=== PATIENT | male | born 1985 | race African-American/Black ===

== ENCOUNTER 2018-10-30 17:50 | Emergency (ER) | payer SELFPAY ==
[2018-10-30] MEDS ORDERED: Ketorolac 60 MG/2 ML SDV IM ONE (18:01)
--- NOTE | 2018-10-30 18:08 | EDM.PDOC ---
ED HPI GENERAL MEDICAL PROBLEM - General Chief Complaint: Back Pain or Injury Stated Complaint: HURT BACK Time Seen by Provider: 10/30/18 17:52 Source of Information: Reports: Patient History Limitations: Reports: No Limitations - History of Present Illness INITIAL COMMENTS - FREE TEXT/NARRATIVE: HISTORY AND PHYSICAL: History of present illness: Patient is a 33-year-old male who presents to the emergency room with complaints of low lumbar/right lower back pain after a fall. Patient reports he was running to grab something in his apartment when he slipped falling with his feet out in front of them. He states he fell in a twisting-like position onto his right side. He did not hit his head or have any loss of consciousness. Denies any urinary or fecal incontinence. Denies any numbness or tingling to his distal extremities. He states that he has had muscular strain/pain like this previously. Review of systems: As per history of present illness and below otherwise all systems reviewed and negative. Past medical history: As per history of present illness and as reviewed below otherwise noncontributory. Surgical history: As per history of present illness and as reviewed below otherwise noncontributory. Social history: See social history for further information Family history: As per history of present illness and as reviewed below otherwise noncontributory. Physical exam: General: Well-developed and well-nourished 33-year-old male. Alert and oriented. Nontoxic appearing and in no acute distress. HEENT: Atraumatic, normocephalic, pupils equal and reactive bilaterally, negative for conjunctival pallor or scleral icterus, mucous membranes moist, TMs normal bilaterally, throat clear, neck supple, nontender, trachea midline. No drooling or trismus noted. No meningeal signs. No hot potato voice noted. Lungs: Clear to auscultation, breath sounds equal bilaterally, chest nontender. Heart: S1S2, regular rate and rhythm without overt murmur Abdomen: Soft, nondistended, nontender. Negative for masses or hepatosplenomegaly. Negative for costovertebral tenderness. Pelvis: Stable nontender. Genitourinary: Deferred. Rectal: Deferred. Skin: Intact, warm, dry. No lesions or rashes noted. C-spine/Back: No pinpoint vertebral tenderness with palpation. No crepitus, step -offs or obvious deformities. Patient is ambulatory into the emergency room without difficulty or deficits. He is able to walk on his heels and toes without difficulty. Denies any numbness, tingling or saddle paresthesia. Denies any urinary or fecal incontinence. Extremities: Atraumatic, moves all extremities per self without difficulty or deficits, negative for cords or calf pain. Neurovascular unremarkable. Neuro: Awake, alert, oriented. Cranial nerves II through XII unremarkable. Cerebellum unremarkable. Motor and sensory unremarkable throughout. Exam nonfocal. Notes: Patient does have a ride to home. We'll give Norflex and Toradol IM. Agreeable for lumbar spine x-ray. Patient did find relief with IM injections. X-ray shows no acute findings. We' ll prescribe Flexeril and diclofenac for home use. Medication education reviewed. Supportive care measures were reviewed and discussed. Voices understanding and is agreeable to plan of care. Denies any further questions or concerns at this time. Diagnostics: Lumbar X-ray Therapeutics: Norflex IM, Toradol IM Prescription: Flexeril (#21) Diclofenac (#30) Impression: Lumbar back pain Plan: 1. The medication he received as an injection today does cause drowsiness so do not drive for the remaining day 2. When resting please lay on a flat firm surface. Limit your immobility to prevent muscle stiffness, get up to ambulate/move around/gentle stretching multiple times throughout the day. May alternate heat and ice to the painful area and 3. Tylenol as needed for back pain. Otherwise take the prescribed Flexeril and diclofenac as directed. Diclofenac is an anti-inflammatory so do not take any additional NSAIDs with this medication, such as ibuprofen or Aleve. Flexeril as a muscle relaxant, this medication may cause drowsiness a do not take it will driving her needing to be functioning outside of the house. 4. Please follow-up with your primary care provider as we discussed. 5. Return to the ED as needed and as discussed. Definitive disposition and diagnosis as appropriate pending reevaluation and review of above. Lower Back Pain Score (Numeric/FACES): 7 - Related Data Allergies Allergy/AdvReac Type Severity Reaction Status Date / Time No Known Allergies Allergy Verified 10/30/18 18:00 Home Meds: Home Meds Cyclobenzaprine [Flexeril] 10 mg PO TID PRN #21 tab 10/30/18 [Rx] Diclofenac Sodium [Voltaren] 75 mg PO BIDMEALS PRN #30 tab.cr 10/30/18 [Rx] ED ROS GENERAL - Review of Systems Review Of Systems: ROS reveals no pertinent complaints other than HPI. ED EXAM,LOWER BACK PAIN/INJURY - Physical Exam Exam: See Below (See dictation) Course - Vital Signs Last Recorded V/S: Last Vital Signs Temp 97.9 F 10/30/18 18:01 Pulse 88 10/30/18 18:01 Resp 18 10/30/18 18:01 BP 143/84 H 10/30/18 18:01 Pulse Ox 98 10/30/18 18:01 - Orders/Labs/Meds Orders: Active Orders 24 hr Category Date Time Status Lumbar Spine 2 or 3V [CR] Stat Exams 10/30/18 18:01 Taken Meds: Medications Discontinued Medications Generic Name Dose Route Start Last Admin Trade Name Freq PRN Reason Stop Dose Admin Ketorolac Tromethamine 60 mg 10/30/18 18:01 10/30/18 18:09 Toradol IM 10/30/18 18:02 60 mg ONETIME ONE Administration Orphenadrine Citrate 60 mg 10/30/18 18:01 10/30/18 18:10 Norflex IM 10/30/18 18:02 60 mg NOW STA Administration Departure - Departure Time of Disposition: 18:08 Disposition: Home, Self-Care 01 Clinical Impression: Lumbar back pain - Discharge Information Prescriptions: Cyclobenzaprine [Flexeril] 10 mg PO TID PRN #21 tab PRN Reason: Muscle Spasm Diclofenac Sodium [Voltaren] 75 mg PO BIDMEALS PRN #30 tab.cr PRN Reason: Pain Instructions: Acute Back Pain, Adult Referrals: PCP,None [Primary Care Provider] - Forms: ED Department Discharge Additional Instructions: The following information is given to patients seen in the emergency department who are being discharged to home. This information is to outline your options for follow-up care. We provide all patients seen in our emergency department with a follow-up referral. The need for follow-up, as well as the timing and circumstances, are variable depending upon the specifics of your emergency department visit. If you don't have a primary care physician on staff, we will provide you with a referral. We always advise you to contact your personal physician following an emergency department visit to inform them of the circumstance of the visit and for follow-up with them and/or the need for any referrals to a consulting specialist. The emergency department will also refer you to a specialist when appropriate. This referral assures that you have the opportunity for follow-up care with a specialist. All of these measure are taken in an effort to provide you with optimal care, which includes your follow-up. Under all circumstances we always encourage you to contact your private physician who remains a resource for coordinating your care. When calling for follow-up care, please make the office aware that this follow-up is from your recent emergency room visit. If for any reason you are refused follow-up, please contact the [facility] Emergency Department at and asked to speak to the emergency department charge nurse. [facility] [address] [place] [id number] [place] [address] 1. The medication he received as an injection today does cause drowsiness so do not drive for the remaining day 2. When resting please lay on a flat firm surface. Limit your immobility to prevent muscle stiffness, get up to ambulate/move around/gentle stretching multiple times throughout the day. May alternate heat and ice to the painful area and 3. Tylenol as needed for back pain. Otherwise take the prescribed Flexeril and diclofenac as directed. Diclofenac is an anti-inflammatory so do not take any additional NSAIDs with this medication, such as ibuprofen or Aleve. Flexeril as a muscle relaxant, this medication may cause drowsiness a do not take it will driving her needing to be functioning outside of the house. 4. Please follow-up with your primary care provider as we discussed. 5. Return to the ED as needed and as discussed. - My Orders Last 24 Hours: My Active Orders 10/30/18 18:01 Lumbar Spine 2 or 3V [CR] Stat - Assessment/Plan Last 24 Hours: My Active Orders 10/30/18 18:01 Lumbar Spine 2 or 3V [CR] Stat
--- NOTE | 2018-10-30 18:34 | CR ---
INDICATION: Fall. COMPARISON: None. FINDINGS/IMPRESSION: No acute fracture identified in the lumbar spine. No subluxation. Mild lumbar dextroscoliosis. Mild degenerative disc disease at L4-5. Unremarkable soft tissues. Dictated by Geoff De MD @ 10/30/2018 6:31:49 PM Dictated by: Geoff De MD @ 10/30/2018 18:32:02 (Electronically Signed)
== END 2018-10-30 18:44 | disposition home or self-care (01) ==
LOC: MW.ED 17:50
DX: M54.5 Low back pain (principal)
CPT/HCPCS: 72100; 96372; 99283; J1885; J2360

== ENCOUNTER 2018-12-08 06:58 | Emergency (ER) | payer SELFPAY ==
[2018-12-08] MEDS ORDERED: Ketorolac 60 MG/2 ML SDV IM ONE (07:26)
[2018-12-08 08:18] LABS: CHLORIDE,CL 104 mmol/L (98-107); SODIUM,NA 138 mmol/L (136-148)
--- NOTE | 2018-12-08 08:29 | EDM.PDOC ---
<Elizabeth Villatoro - Last Filed: 12/08/18 08:34> ED HPI GENERAL MEDICAL PROBLEM - General Chief Complaint: General Stated Complaint: PAIN- LEFT SIDE OF BACK Time Seen by Provider: 12/08/18 09:16 - History of Present Illness INITIAL COMMENTS - FREE TEXT/NARRATIVE: This is Dr. Villatoro dictating addendum note as I am the supervising physician on this case. I agree with history and physical as above and the patient says his pain is localized to the left side just underneath his posterior rib cage. He has no shortness of breath no anterior chest wall pain and no anterior abdominal pain. He had no urinary disturbances no nausea vomiting. Labs and CT scan upon performed to rule out any occult trauma due to the location of this injury. We will treat him with nonnarcotics and symptomatically pending those results. On my personal examination of the patient there is no posterior rib tenderness crepitus defects or deformities no soft tissue swelling in the region of his discomfort and there is reproducible pain with palpation of the soft tissue to the left of the midline spine in the lower flank area. There is no midline tenderness step-offs defects or deformity of the thoracic or lumbar spine. - Related Data Allergies Allergy/AdvReac Type Severity Reaction Status Date / Time No Known Allergies Allergy Verified 12/08/18 07:10 Home Meds: Home Meds . [No Known Home Meds] 12/08/18 [History] Course - Vital Signs Last Recorded V/S: Last Vital Signs Temp 36.1 C 12/08/18 07:08 Pulse 79 12/08/18 07:08 Resp 18 12/08/18 07:08 BP 137/69 12/08/18 07:08 Pulse Ox 98 12/08/18 07:08 - Orders/Labs/Meds Labs: Laboratory Tests 12/08/18 12/08/18 Range/Units 07:41 07:41 WBC 4.94 (4.0-11.0) K/uL RBC 5.08 (4.50-5.90) M/uL Hgb 15.4 (13.0-17.0) g/dL Hct 46.2 (38.0-50.0) % MCV 90.9 (80.0-98.0) fL MCH 30.3 (27.0-32.0) pg MCHC 33.3 (31.0-37.0) g/dL RDW Std Deviation 47.0 (28.0-62.0) fl RDW Coeff of Yanelis 14 (11.0-15.0) % Plt Count 232 (150-400) K/uL MPV 9.40 (7.40-12.00) fL Neut % (Auto) 52.5 (48.0-80.0) % Lymph % (Auto) 35.4 (16.0-40.0) % [place] % (Auto) 9.5 (0.0-15.0) % Eos % (Auto) 2.4 (0.0-7.0) % Baso % (Auto) 0.2 (0.0-1.5) % Neut # (Auto) 2.6 (1.4-5.7) K/uL Lymph # (Auto) 1.8 (0.6-2.4) K/uL [place] # (Auto) 0.5 (0.0-0.8) K/uL Eos # (Auto) 0.1 (0.0-0.7) K/uL Baso # (Auto) 0.0 (0.0-0.1) K/uL Nucleated RBC % 0.0 /100WBC Nucleated RBCs # 0 K/uL Sodium 138 (136-148) mmol/L Potassium 3.7 (3.5-5.1) mmol/L Chloride 104 (98-107) mmol/L Carbon Dioxide 26.2 (21.0-32.0) mmol/L BUN 18 (7.0-18.0) mg/dL Creatinine 1.1 (0.8-1.3) mg/dL Est Cr Clr Drug Dosing 103.86 mL/min Estimated GFR (MDRD) > 60.0 ml/min Glucose 85 (74-106) mg/dL Calcium 8.6 (8.5-10.1) mg/dL Total Bilirubin 0.5 (0.2-1.0) mg/dL AST 26 (15-37) IU/L ALT 42 (14-63) IU/L Alkaline Phosphatase 47 (46-116) U/L Total Protein 7.0 (6.4-8.2) g/dL Albumin 3.9 (3.4-5.0) g/dL Globulin 3.1 (2.6-4.0) g/dL Albumin/Globulin Ratio 1.3 (0.9-1.6) Lipase 50 L (73-393) U/L Meds: Medications Discontinued Medications Generic Name Dose Route Start Last Admin Trade Name Anne PRN Reason Stop Dose Admin Iopamidol 100 ml 12/08/18 08:51 12/08/18 08:52 Isovue Multipack-370 (76%) IVPUSH 12/08/18 08:52 100 ml ONETIME ONE Administration Ketorolac Tromethamine 60 mg 12/08/18 07:26 12/08/18 07:52 Toradol IM 12/08/18 07:27 60 mg ONETIME ONE Administration Departure - Departure Disposition: Home, Self-Care 01 Clinical Impression: Left rib fracture Qualifiers: Encounter type: initial encounter Rib fracture type: single rib Fracture type: closed Qualified Code(s): S22.32XA - Fracture of one rib, left side, initial encounter for closed fracture - Discharge Information Referrals: PCP,None [Primary Care Provider] - Forms: ED Department Discharge Additional Instructions: Follow-up with Dr. Lynne in 1-2 weeks at [facility]. <Obed Mendoza - Last Filed: 12/08/18 09:16> ED HPI GENERAL MEDICAL PROBLEM - History of Present Illness INITIAL COMMENTS - FREE TEXT/NARRATIVE: 33 y/o male presenting with left flank pain. States that he was wrestling with his friend yesterday and he got hit on his left flank. Rates pain 8/10 with pressure. Has been using ibuprofen and tylenol with minimal improvement. Denies any hematuria, blood in stool. No chest pain, abdominal pain. No previous fractures. Endorses some pleuritic pain. left ribs Pain Score (Numeric/FACES): 9 Past Medical History - Past Health History Medical/Surgical History: Denies Medical/Surgical History HEENT History: Reports: None Cardiovascular History: Reports: None Respiratory History: Reports: Other (See Below) Other Respiratory History: punctured lung with chest tube placement Gastrointestinal History: Reports: None Genitourinary History: Reports: None Musculoskeletal History: Reports: None Neurological History: Reports: None Psychiatric History: Reports: None Endocrine/Metabolic History: Reports: None Hematologic History: Reports: None Immunologic History: Reports: None Oncologic (Cancer) History: Reports: None Dermatologic History: Reports: None - Infectious Disease History Infectious Disease History: Reports: None - Past Surgical History Head Surgeries/Procedures: Reports: None HEENT Surgical History: Reports: None Cardiovascular Surgical History: Reports: None Respiratory Surgical History: Reports: None GI Surgical History: Reports: None Male Surgical History: Reports: None Endocrine Surgical History: Reports: None Neurological Surgical History: Reports: None Musculoskeletal Surgical History: Reports: None Oncologic Surgical History: Reports: None Dermatological Surgical History: Reports: None Social & Family History - Family History Family Medical History: Noncontributory - Tobacco Use Smoking Status *Q: Never Smoker Second Hand Smoke Exposure: No - Caffeine Use Caffeine Use: Reports: None - Recreational Drug Use Recreational Drug Use: Yes Recreational Drug Type: Reports: Marijuana/Hashish Recreational Drug Use Frequency: Rarely ED ROS GENERAL - Review of Systems Review Of Systems: ROS reveals no pertinent complaints other than HPI. ED EXAM, GENERAL - Physical Exam Exam: See Below Head: Atraumatic, Normocephalic Respiratory/Chest: No Respiratory Distress, Lungs Clear, Normal Breath Sounds Cardiovascular: Regular Rate, Rhythm, No Edema GI/Abdominal: Normal Bowel Sounds, Soft, Non-Tender, No Organomegaly, No Distention Back Exam: CVA Tenderness (L), Other (tenderness left side below ribs. No wound , swelling.) Extremities: Normal Inspection, No Pedal Edema Skin Exam: Warm, Dry Course - Vital Signs Text/Narrative:: CT abdomen showed left rib fracture. Departure - Departure Time of Disposition: 09:15 - Discharge Information *PRESCRIPTION DRUG MONITORING PROGRAM REVIEWED*: Not Applicable *COPY OF PRESCRIPTION DRUG MONITORING REPORT IN PATIENT MICHELLE: Not Applicable
[2018-12-08] MEDS ORDERED: Iopamidol 755 MG/ML 500 ML Multipack Bottle IVPUSH ONE (08:51)
--- NOTE | 2018-12-08 09:07 | CT ---
EXAMINATION: CT abdomen with contrast HISTORY: Left flank plain COMPARISON: None TECHNIQUE: Axial CT imaging obtained through the abdomen following the administration of 100 mL of Isovue-370 vascular fossa. Coronal and sagittal reconstructions obtained. FINDINGS: The lung bases are clear, no pleural effusion. The liver, spleen, adrenal glands, and pancreas appear normal. The gallbladder is normal. No bulky retroperitoneal lymphadenopathy or abdominal ascites. The kidneys enhance and function symmetrically without evidence of obstructive uropathy. The visualized large and small bowel are normal in caliber. No interspace posterior 11th rib fracture. IMPRESSION: 1. Nondisplaced left and posterior fracture. 2. Otherwise no acute findings noted within the abdomen.
== END 2018-12-08 09:55 | disposition home or self-care (01) ==
LOC: MW.ED 06:58
DX: S22.32XA Fracture of one rib, left side, initial encounter for closed fracture (principal); W50.0XXA Accidental hit or strike by another person, initial encounter; Y93.72 Activity, wrestling
CPT/HCPCS: 36415; 74160; 80053; 83690; 85025; 96372; 99284; J1885; Q9967

== ENCOUNTER 2019-01-23 11:53 | Emergency (ER) | payer SELFPAY ==
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
--- NOTE | 2019-01-23 12:17 | CT ---
INDICATION: Stroke code. Left arm numbness. TECHNIQUE: CT of the head without contrast. Coronal and sagittal reformats are included. COMPARISON: None. FINDINGS: No acute intracranial hemorrhage. No mass effect or midline shift. Normal cerebral volume. No hydrocephalus or extra-axial collections. White matter within normal limits for age. No acute osseous findings. Scattered ethmoid air cell mucosal thickening. Bilateral maxillary sinus mucous retention cysts. Normal soft tissues. IMPRESSION: 1. No acute intracranial abnormalities, including no CT evidence of acute infarction. No acute intracranial hemorrhage. Please note that all CT scans at this facility use dose modulation, iterative reconstruction, and/or weight-based dosing when appropriate to reduce radiation dose to as low as reasonably achievable. Dictated by Wing Jama MD @ Jan 23 2019 12:11PM Signed by Dr. Wing Jama @ Jan 23 2019 12:15PM
--- NOTE | 2019-01-23 12:19 | CT ---
INDICATION: Left-sided arm numbness. TECHNIQUE: CT of the cervical spine without contrast. Coronal and sagittal reformats are included. COMPARISON: No comparisons. FINDINGS: No acute fracture or traumatic malalignment of the cervical spine. Normal cervical lordotic curvature. Dextroconvex curve likely positional. No lytic or blastic process within the imaged osseous structures. Cervical disc heights are maintained. No osseous neural foraminal encroachment. No spinal canal stenosis within limits of CT examination. Imaged intracranial structures, cervical and paraspinous soft tissues are normal in appearance. The visualized pulmonary apices are clear. IMPRESSION: 1. No acute fracture or traumatic malalignment of the cervical spine. No significant osseous neural foraminal encroachment. No spinal canal stenosis within limits of CT examination Please note that all CT scans at this facility use dose modulation, iterative reconstruction, and/or weight-based dosing when appropriate to reduce radiation dose to as low as reasonably achievable. Dictated by Wing Jama MD @ Jan 23 2019 12:15PM Signed by Dr. Wing Jama @ Jan 23 2019 12:19PM
[2019-01-23 12:26] LABS: CHLORIDE,CL 105 mmol/L (98-107); SODIUM,NA 142 mmol/L (136-148)
--- NOTE | 2019-01-23 12:38 | CR ---
HISTORY: Arm numbness. TECHNIQUE: One view chest. COMPARISON: No prior. FINDINGS: Cardiac size and pulmonary vasculature within normal limits. There is no lung infiltrate or pulmonary edema. No pneumothorax or pleural effusion. No acute bony abnormality. IMPRESSION: No acute disease. Dictated by Milan Duckworth MD @ 01/23/2019 12:38:08 PM Dictated by: Milan Duckworth MD @ 01/23/2019 12:38:11 (Electronically Signed)
== END 2019-01-23 13:15 | disposition home or self-care (01) ==
LOC: MW.ED 11:53
DX: R20.2 Paresthesia of skin (principal)
CPT/HCPCS: 70450; 70450-26; 71045; 71045-26; 72125; 72125-26; 80053; 81001; 84484; 85025; 85610; 93005; 99285-25

== ENCOUNTER 2019-03-27 19:41 | Emergency (ER) | payer OTHER ==
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
== END 2019-03-27 20:17 | disposition home or self-care (01) ==
LOC: MW.ED 19:41
DX: H66.92 Otitis media, unspecified, left ear (principal); I10 Essential (primary) hypertension
CPT/HCPCS: 99283